=== PATIENT | female | born 1990 | race African-American/Black ===

== ENCOUNTER 2023-12-29 11:22 | Outpatient (CLI) | payer BC, SELFPAY ==
[2023-12-29 12:25] LABS: Hemoglobin A1C 4.9 % (<5.7)
[2023-12-29 12:57] LABS: HIV 1/2 Ab P24 Ag Result Negative (Negative); Hepatitis B Surface Antigen Negative (Negative)
[2023-12-29 13:02] LABS: HAV RESULT Negative (Negative); Hepatitis B Core IgM Result Negative (Negative)
[2023-12-29 13:14] LABS: Hepatitis C Virus Antibody Negative (Negative)
[2023-12-30 12:15] LABS: Rapid Plasma Reagin Non-Reactive (NonReactive)
[2024-01-01 07:30] LABS: FSH 15.1 mIU/mL (***); LH 16.1 mIU/mL (***)
[2024-01-04 12:53] LABS: Testosterone Total 13 ng/dL (2-45)
[2024-01-05 01:57] LABS: Estradiol, Ultrasensitive 190 pg/mL
== END 2023-12-29 11:23 | disposition home or self-care (01) ==
PROVIDERS: PCP Internal Medicine; Visit Provider Student in an Organized Health Care Education/Training Program
DX: Z11.3 Encounter for screening for infections with a predominantly sexual mode of transmission (principal); N91.2 Amenorrhea, unspecified
CPT/HCPCS: 36415; 80074; 82670; 83001; 83002; 83036; 84403; 84443; 86592; 86695; 86696; 86703; G0432